=== PATIENT | female | born 1940 | race Hispanic/Latino ===

== ENCOUNTER → 2018-12-14 | Outpatient (CLI) | payer OTHER | END | disposition home or self-care (01) | LOC: RAH 13:29 | PROVIDERS: ATTEND Internal Medicine | DX: R05 Cough (principal); M19.012 Primary osteoarthritis, left shoulder | CPT/HCPCS: 71046 ==

== ENCOUNTER → 2022-03-25 | Outpatient (CLI) | payer OTHER ==
[2022-03-25 11:12] LABS: BASOPHILS % (AUTO) 0.7 % (0.0-5.0); EOSINOPHILS % (AUTO) 1.9 % (0.0-8.0); HEMATOCRIT 39.1 % (36-48); MEAN CORPUSCULAR HEMOGLOBIN 29.6 pg (27.0-33.0); MEAN CORPUSCULAR HGB CONC 32.5 g/dL (32.0-36.0); MEAN CORPUSCULAR VOLUME 91.1 fL (79-99); MONOCYTES % (AUTO) 7.7 % (3.0-13.0); NEUTROPHILS % (AUTO) 62.4 % (40.0-77.0); PLATELET COUNT (AUTO) 278 K/uL (130-400); RED BLOOD CELL COUNT(AUTO) 4.29 MIL/uL (4.00-5.50); RED CELL DISTRIBUTION WIDTH 13.4 % (11.0-15.5)
[2022-03-25 11:22] LABS: HEMOGLOBIN A1C 6.1 % (4.0-6.0)
[2022-03-25 11:24] LABS: ALBUMIN 3.8 g/dL (3.5-5.0); BILIRUBIN,TOTAL 0.5 mg/dL (0.2-1.0); CREATININE 0.5 mg/dL (0.5-1.5); INR 1.01 (0.85-1.15); POTASSIUM 4.3 mmol/L (3.5-5.1); TOTAL PROTEIN, SERUM 7.3 g/dL (6.0-8.3)
[2022-03-25 11:25] LABS: PARTIAL THROMBOPLASTIN TIME 27.2 SEC (26.3-35.5)
== END | disposition home or self-care (01) ==
LOC: LAB 10:13
PROVIDERS: ATTEND Internal Medicine
DX: Z01.818 Encounter for other preprocedural examination (principal); I12.9 Hypertensive chronic kidney disease with stage 1 through stage 4 chronic kidney disease, or unspecified chronic kidney disease; N18.2 Chronic kidney disease, stage 2 (mild); K76.89 Other specified diseases of liver; E78.2 Mixed hyperlipidemia; R73.09 Other abnormal glucose
CPT/HCPCS: 36415; 71046; 80053; 80061; 82043; 83036; 85025; 85610; 85730

== ENCOUNTER 2022-05-17 07:55 | Observation (INO) | payer OTHER ==
[2022-05-14 10:16] LABS: BASOPHILS % (AUTO) 0.9 % (0.0-5.0); EOSINOPHILS % (AUTO) 3.1 % (0.0-8.0); HEMATOCRIT 37.7 % (36-48); MEAN CORPUSCULAR HEMOGLOBIN 28.6 pg (27.0-33.0); MEAN CORPUSCULAR HGB CONC 32.4 g/dL (32.0-36.0); MEAN CORPUSCULAR VOLUME 88.5 fL (79-99); MONOCYTES % (AUTO) 9.6 % (3.0-13.0); NEUTROPHILS % (AUTO) 58.3 % (40.0-77.0); PLATELET COUNT (AUTO) 259 K/uL (130-400); RED BLOOD CELL COUNT(AUTO) 4.26 MIL/uL (4.00-5.50); RED CELL DISTRIBUTION WIDTH 13.3 % (11.0-15.5); WHITE BLOOD COUNT (AUTO) 6.9 K/uL (4.8-10.8)
[2022-05-14 10:26] LABS: APPEARANCE,URINE CLEAR (CLEAR); BILIRUBIN,URINE NEGATIVE (NEGATIVE); COLOR,URINE YELLOW (YELLOW); GLUCOSE, URINE (UA) NEGATIVE (NEGATIVE); KETONES,URINE NEGATIVE (NEGATIVE); LEUKOCYTE ESTERASE ,URINE MODERATE (NEGATIVE); NITRATE,URINE NEGATIVE (NEGATIVE); OCCULT BLOOD,URINE NEGATIVE (NEGATIVE); PH,URINE 7.5 (5.0-8.0); PROTEIN,URINE NEGATIVE (NEGATIVE); UROBILINOGEN,URINE 0.2 mg/dL (0.2-1.0)
[2022-05-14 10:45] LABS: CREATININE 0.5 mg/dL (0.5-1.5)
[2022-05-14 10:45] LABS: BACTERIA,URINE Rare /HPF (None Seen); RBC,URINE None Seen /HPF (0-1); SQUAMOUS EPITHELIAL CELL,UR Rare /HPF (0-2); WBC,URINE 0-1 /HPF (0-1)
[2022-05-14 11:05] LABS: INR 0.98 (0.85-1.15); PROTHROMBIN TIME 10.7 SEC (9.6-11.6)
[2022-05-14 15:38] VITALS: BP 189/71
[~2022-05-17] VITALS: Ht 152.4 cm; Wt 76.0 kg
[2022-05-17] VITALS (23 sets, daily range): BP systolic 137–185; BP diastolic 53–97
[~2022-05-17 07:55] MED LIST: CALCIUM PO; CEFAZOLIN SODIUM 2 GM VIAL IV SCH; GENTAMICIN SULFATE 240 MG in 0.9%NACL 100ML 100 ML IV SCH; LOSA50TA64 PO; SIMV-46 PO; VITAMIN B12 PO; VITAMIN D PO; VITAMIN D3 PO
[2022-05-17] MEDS ORDERED: CEFAZOLIN SODIUM 1 GM VIAL ONE ×2 (10:02→12:21)
[2022-05-17] MEDS ORDERED: ACET-66 PO (11:44)
[2022-05-17] MEDS ORDERED: LIDOCAINE PF 100MG/5ML (2%) SYRINGE 5ML ONE (11:52)
[2022-05-17] MEDS ORDERED: DEXAMETHASONE SOD PHOSPHATE 10MG/ML 1ML VIAL ONE (11:52)
[2022-05-17] MEDS ORDERED: SUCCINYLCHOLINE CHLORIDE 20 MG/ML 10 ML VIAL ONE (11:52)
[2022-05-17] MEDS ORDERED: PROPOFOL 10 MG/ML 20ML VIAL IV ONE (11:53)
[2022-05-17] MEDS ORDERED: GLYCOPYRROLATE 1 MG/5 ML SYRINGE ONE (11:53)
[2022-05-17] MEDS ORDERED: MIDAZOLAM HCL 1 MG/ML 2ML VIAL ONE (11:53)
[2022-05-17] MEDS ORDERED: ONDANSETRON 4MG INJ ONE (11:53)
[2022-05-17] MEDS ORDERED: ROCURONIUM 10MG/1ML SYR 10 MG/ML ML ONE (11:53)
[2022-05-17] MEDS ORDERED: NEOSTIGMINE 5MG/5ML SYR IV ONE (11:53)
[2022-05-17] MEDS ORDERED: FENTANYL CITRATE PF 50 MCG/1 ML 2ML VIAL ONE (11:54)
[2022-05-17] MEDS ORDERED: ACETAMINOPHEN 500 MG TABLET ONE (12:19)
[2022-05-17] MEDS ORDERED: CELECOXIB 200 MG CAP ONE (12:19)
[2022-05-17] MEDS ORDERED: TRANEXAMIC ACID 1000MG/10ML ONE ×2 (12:21→15:24)
[2022-05-17] MEDS ORDERED: LACTATED RINGERS 1000ML 1,000 ML IV ONE (12:35)
[2022-05-17] MEDS ORDERED: KCL 20 MEQ ERTAB PO PRN (15:00)
[2022-05-17] MEDS ORDERED: POTASSIUM CHLORIDE 20MEQ/100ML 100 ML IV PRN (15:00)
[2022-05-17] MEDS ORDERED: KETOROLAC 15MG/ML VIAL (15MG/ML) IV PRN (15:00)
[2022-05-17] MEDS ORDERED: ONDANSETRON 4MG INJ IVP PRN (15:00)
[2022-05-17] MEDS ORDERED: POTASSIUM CHLORIDE 10% ELIXIR 20 MEQ/15 ML UDCUP PO PRN (15:00)
[2022-05-17] MEDS ORDERED: LIDOCAINE HCL-MPF 1% 2ML VIAL IV PRN (15:00)
[2022-05-17] MEDS: ACETAMINOPHEN 500 MG TABLET PO SCH ×2 (15:00→20:28)
[2022-05-17] MEDS ORDERED: OXYCODONE HCL 5 MG TAB PO PRN (15:00)
[2022-05-17] MEDS ORDERED: CALCIUM CARB 500MG PO PRN (15:00)
[2022-05-17] MEDS ORDERED: 0.9%NACL 1000ML 1,000 ML IV SCH (15:00)
[2022-05-17] MEDS ORDERED: DiphenhydrAMINE HCL 50 MG/ML VIAL IVP PRN (15:00)
[2022-05-17] MEDS ORDERED: FERROUS FUMARATE 324 MG TABLET PO PRN (15:00)
[2022-05-17] MEDS ORDERED: MEPERIDINE-PF 25 MG/ML SYG ONE (15:30)
[2022-05-17] MEDS ORDERED: MORPHINE 2 MG SYG ONE ×2 (15:56→16:04)
[2022-05-17] MEDS ORDERED: ACETAMINOPHEN 500 MG PO SCH (18:30)
[2022-05-17] MEDS: FAMOTIDINE 20MG TAB PO SCH (20:27)
[2022-05-17] MEDS: CELECOXIB 200 MG CAP PO SCH (20:27)
[2022-05-17] MEDS: ASPIRIN 81 MG EC TAB PO SCH (20:27)
[2022-05-17] MEDS: PREGABALIN 25 MG CAP PO SCH (20:28)
[2022-05-17] MEDS: CEFAZOLIN SODIUM 1 GM VIAL IVP SCH (20:28)
[2022-05-17] MEDS: SIMVASTATIN 20 MG TABLET PO SCH (20:30)
[2022-05-17] MEDS: CALCIUM CARB 500MG PO SCH (20:31)
[2022-05-17] MEDS ORDERED: VITAMIN D PO SCH (21:00)
[2022-05-17] MEDS ORDERED: **HM** VIT B12 PO SCH (21:00)
[2022-05-17] MEDS ORDERED: **HM** VIT D3 PO SCH (21:00)
[2022-05-18 00:30] VITALS: BP 146/78
[2022-05-18] MEDS: CEFAZOLIN SODIUM 1 GM VIAL IVP SCH (03:11)
[2022-05-18 04:26] VITALS: BP 137/62
[2022-05-18 04:48] LABS: HEMATOCRIT 33.7 % (36-48); MEAN CORPUSCULAR HEMOGLOBIN 29.2 pg (27.0-33.0); MEAN CORPUSCULAR HGB CONC 33.8 g/dL (32.0-36.0); MEAN CORPUSCULAR VOLUME 86.4 fL (79-99); RED BLOOD CELL COUNT(AUTO) 3.9 MIL/uL (4.00-5.50); WHITE BLOOD COUNT (AUTO) 8.5 K/uL (4.8-10.8)
[2022-05-18 05:09] LABS: CREATININE 0.6 mg/dL (0.5-1.5); POTASSIUM 4.2 mmol/L (3.5-5.1)
[2022-05-18] MEDS: ACETAMINOPHEN 500 MG TABLET PO SCH ×3 (06:00→19:50)
[2022-05-18 08:00] VITALS: BP 132/56
[2022-05-18] MEDS: TRAMADOL HCL 50 MG TABLET PO PRN (08:27)
[2022-05-18] MEDS: ASPIRIN 81 MG EC TAB PO SCH ×2 (09:20→19:48)
[2022-05-18] MEDS: FAMOTIDINE 20MG TAB PO SCH ×2 (09:20→19:49)
[2022-05-18] MEDS: TAMSULOSIN HCL 0.4 MG CAP.ER.24H PO SCH (09:20)
[2022-05-18] MEDS: PREGABALIN 25 MG CAP PO SCH ×2 (09:20→19:49)
[2022-05-18] MEDS: CELECOXIB 200 MG CAP PO SCH ×2 (09:20→19:48)
[2022-05-18] MEDS: POLYETHYLENE GLYCOL 3350 17 GM POWD.PACK PO SCH (09:21)
[2022-05-18] MEDS: LOSARTAN 50 MG TABLET PO SCH (09:21)
[2022-05-18 12:00] VITALS: BP 98/53
[2022-05-18] MEDS: OXYCODONE HCL 5 MG TAB PO PRN (12:53)
[2022-05-18 16:00] VITALS: BP 104/53
[2022-05-18] MEDS ORDERED: CYANOCOBALAMIN (VITAMIN B-12) 1,000 MCG TABLET ONE (18:57)
[2022-05-18] MEDS: CALCIUM CARB 500MG PO SCH (19:48)
[2022-05-18] MEDS: SIMVASTATIN 20 MG TABLET PO SCH (19:48)
[2022-05-18 20:42] VITALS: BP 103/54
[2022-05-18] MEDS ORDERED: CHOLECALCIFEROL 5000 MG PO SCH (21:00)
[2022-05-18] MEDS ORDERED: CYANOCOBALAMIN (VITAMIN B-12) 1,000 MCG TABLET PO SCH (21:00)
[2022-05-19 01:06] VITALS: BP 113/59
[2022-05-19 04:29] VITALS: BP 123/59
[2022-05-19] MEDS: ACETAMINOPHEN 500 MG TABLET PO SCH ×2 (06:26→14:28)
[2022-05-19 08:00] VITALS: BP 122/58
[2022-05-19] MEDS: POLYETHYLENE GLYCOL 3350 17 GM POWD.PACK PO SCH (08:40)
[2022-05-19] MEDS: ASPIRIN 81 MG EC TAB PO SCH (08:40)
[2022-05-19] MEDS: OXYCODONE HCL 5 MG TAB PO PRN (08:40)
[2022-05-19] MEDS: CELECOXIB 200 MG CAP PO SCH (08:40)
[2022-05-19] MEDS: LOSARTAN 50 MG TABLET PO SCH (08:40)
[2022-05-19] MEDS: TAMSULOSIN HCL 0.4 MG CAP.ER.24H PO SCH (08:40)
[2022-05-19] MEDS: PREGABALIN 25 MG CAP PO SCH (08:40)
[2022-05-19] MEDS: FAMOTIDINE 20MG TAB PO SCH (08:40)
[2022-05-19] MEDS: TRAMADOL HCL 50 MG TABLET PO PRN (09:55)
[2022-05-19] MEDS ORDERED: HYDR-4060 PO (11:17)
[2022-05-19] MEDS ORDERED: AEC81 PO (11:17)
[2022-05-19 12:00] VITALS: BP 109/61
[2022-05-19 16:38] VITALS: BP 125/74
[2022-05-20] MEDS ORDERED: BISACODYL 10 MG SUPP.RECT RC PRN (15:00)
== END 2022-05-19 21:32 | disposition home health service (06) ==
LOC: DAH 07:55 → DAHIP 07:56 → 4AH 16:57
PROVIDERS: ADMIT Orthopaedic Surgery; ATTEND Orthopaedic Surgery
DX: M17.12 Unilateral primary osteoarthritis, left knee (principal); Z20.822 Contact with and (suspected) exposure to COVID-19; R26.89 Other abnormalities of gait and mobility; M21.062 Valgus deformity, not elsewhere classified, left knee; M25.562 Pain in left knee; G89.29 Other chronic pain; I10 Essential (primary) hypertension; E78.5 Hyperlipidemia, unspecified; R32 Unspecified urinary incontinence; Z90.710 Acquired absence of both cervix and uterus; Z79.899 Other long term (current) drug therapy; Z98.890 Other specified postprocedural states
CPT/HCPCS: 27447; 36415 ×2; 64447; 76770; 76942; 80048 ×2; 81001; 85025; 85027; 85610; 87088; 87635; 87641; 96365; 96375; 96376; 97039 ×4; 97116 ×4; 97161; 97530 ×3; A4215; A4221; A4222; A4223; A4649 ×4; A4663; A5120; A9272; C1776; C9803; G0378 ×51; J0330; J0690 ×4; J1100; J1580; J2001; J2175; J2250; J2405; J2704; J2710; J3010; J3490 ×3; J7120 ×2

== ENCOUNTER → 2023-11-18 | Outpatient (CLI) | payer OTHER ==
[~2023-11-18] MED LIST changes: +ACET-66 PO; +AEC81 PO; -CEFAZOLIN SODIUM 2 GM VIAL IV SCH; -GENTAMICIN SULFATE 240 MG in 0.9%NACL 100ML 100 ML IV SCH; +HYDR-4060 PO
== END | disposition home or self-care (01) ==
LOC: RAH 10:51
PROVIDERS: ATTEND Internal Medicine
DX: M17.11 Unilateral primary osteoarthritis, right knee (principal); M25.761 Osteophyte, right knee
CPT/HCPCS: 73562